=== PATIENT | female | born 1955 | race Caucasian/White ===

== ENCOUNTER 2016-05-14 10:51 | Emergency (ER) | payer MEDICARE, OTHER | END 2016-05-14 16:25 | disposition home or self-care (01) | LOC: ER 10:51 | DX: N39.0 Urinary tract infection, site not specified (principal); I10 Essential (primary) hypertension; E78.5 Hyperlipidemia, unspecified; D64.9 Anemia, unspecified; E03.9 Hypothyroidism, unspecified; Z79.4 Long term (current) use of insulin; Z79.899 Other long term (current) drug therapy; Z79.82 Long term (current) use of aspirin | CPT/HCPCS: 36415; 87502; 96361; 96374; 96375; 96376; J2550; Q9967 ==